=== PATIENT | male | born 1935 | race Caucasian/White ===

== ENCOUNTER 2018-12-03 07:52 | Outpatient (CLI) | payer MEDICARE, OTHER ==
[~2018-12-03 07:52] MED LIST: ASPI-650 PO; ATOR40TA78 PO; LATA2.5D3 EACHEYE; LISI5TAB7 PO; METO25TA35 PO; TIMO5DRO5 EACHEYE
== END 2018-12-03 23:59 | disposition home or self-care (01) ==
LOC: CFH 07:52
PROVIDERS: ATTEND Internal Medicine Cardiovascular Disease
DX: I65.23 Occlusion and stenosis of bilateral carotid arteries (principal)
CPT/HCPCS: 93880

== ENCOUNTER → 2018-12-12 | Outpatient (CLI) | payer MEDICARE, OTHER ==
[~2018-12-12] MED LIST changes: +REGADENOSON 0.4 MG/5 ML SYRINGE ONE
== END | disposition home or self-care (01) ==
LOC: CFH 06:45
PROVIDERS: ATTEND Internal Medicine Cardiovascular Disease
DX: I08.3 Combined rheumatic disorders of mitral, aortic and tricuspid valves (principal); I63.032 Cerebral infarction due to thrombosis of left carotid artery; I25.9 Chronic ischemic heart disease, unspecified; I10 Essential (primary) hypertension; E78.5 Hyperlipidemia, unspecified; R94.31 Abnormal electrocardiogram [ECG] [EKG]; R01.1 Cardiac murmur, unspecified; Z95.1 Presence of aortocoronary bypass graft
CPT/HCPCS: 78452; 93017; 93306; A9502; J2785

== ENCOUNTER → 2019-12-15 | Outpatient (CLI) | payer MEDICARE, OTHER | END | disposition home or self-care (01) | LOC: CFH 08:08 | PROVIDERS: ATTEND Internal Medicine Cardiovascular Disease | DX: I65.23 Occlusion and stenosis of bilateral carotid arteries (principal); I25.119 Atherosclerotic heart disease of native coronary artery with unspecified angina pectoris; I25.9 Chronic ischemic heart disease, unspecified; R09.89 Other specified symptoms and signs involving the circulatory and respiratory systems | CPT/HCPCS: 78452; 93017; 93880; A9502; J2785 ==